=== PATIENT | male | born 1950 | race Caucasian/White ===

== ENCOUNTER → 2017-02-25 | Outpatient (CLI) | payer BC, OTHER ==
[~2017-02-25] MED LIST: ALL180 PO; ATOR10TA82 PO; CHLO50TA PO; EMPA1TAB3 PO; FLM4 PO; GABA-1218 PO; GLC5 PO; GLC850 PO; L-ME1CAP3 PO; MCRK/10 PO; MULT-188 PO; magnesium PO
--- NOTE | 2017-02-25 09:00 | DIAGNOSTIC IMAGING REPORT ---
KUB CLINICAL HISTORY: Nephrolithiasis. COMPARISON STUDY: KUB July 29, 2013. FINDINGS: 2 adjacent calculi within the lower pole of the left kidney measure up to 6 mm. Pelvic calcifications likely reflect phleboliths. There are post surgical findings within the spine. There is no evidence for a bowel obstruction. There is a suspected punctate calculus within the lower pole of the right kidney. Calculus burden has slightly increased since prior exam. IMPRESSION: Bilateral nephrolithiasis, as described above. Electronically signed by: Remi Rao M.D. 02/25/2017 8:58 AM Dictated Date/Time: 02/25/2017 8:55 AM
== END | disposition home or self-care (01) ==
LOC: C.RAD 08:33
PROVIDERS: ATTEND Urology
DX: N20.0 Calculus of kidney (principal)

== ENCOUNTER → 2018-02-11 | Outpatient (CLI) | payer OTHER ==
[~2018-02-11] MED LIST changes: -GLC850 PO; +METF850T10 PO
== END | disposition home or self-care (01) ==
LOC: C.LAB 13:54
PROVIDERS: ATTEND Urology
DX: N40.1 Benign prostatic hyperplasia with lower urinary tract symptoms (principal); N20.0 Calculus of kidney; Z12.5 Encounter for screening for malignant neoplasm of prostate

== ENCOUNTER → 2018-03-05 | Outpatient (CLI) | payer OTHER | END | disposition home or self-care (01) | LOC: C.LAB 09:01 | PROVIDERS: ATTEND Family Medicine | DX: N40.0 Benign prostatic hyperplasia without lower urinary tract symptoms (principal) ==

== ENCOUNTER 2020-03-31 10:55 | Inpatient (IN) ==
[2020-03-31] MEDS ORDERED: ONDANSETRON INJ 2 MG/ML 2 ML VIAL IV STA (11:34)
[2020-03-31] MEDS ORDERED: SODIUM CHLORIDE 0.9% 1000ML 1,000 ML IV ONE (11:34)
[2020-03-31 12:04] LABS: Basophils # (auto) 0.03 K/uL (0-0.2); Basophils % (auto) 0.3 %; Eosinophils # (auto) 0.05 K/uL (0-0.5); Eosinophils % (auto) 0.6 %; Hematocrit (blood only) 47.5 % (42-52); Hemoglobin 16.4 g/dL (14.0-18.0); Immature Granulocytes # (auto) 0.03 K/uL (0.00-0.02); Immature Granulocytes % (auto) 0.3 %; Lymphocytes # (auto) 1.87 K/uL (1.2-3.4); Lymphocytes % (auto) 21.7 %; Mean Corpuscular Hgb Conc 34.5 g/dL (32-36); Mean Corpuscular Volume 92.6 fL (80-100); Mean Platelet Volume 10.6 fL (7.4-10.4); Monocytes # (auto) 1.76 K/uL (0.11-0.59); Monocytes % (auto) 20.4 %; Neutrophils # (auto) 4.87 K/uL (1.4-6.5); Neutrophils % (auto) 56.7 %; Platelet Count 249 K/uL (130-400); RDW Coefficient of Variation 13.6 % (11.5-14.5); RDW Standard Deviation 45.9 fL (36.4-46.3); Red Blood Count 5.13 M/uL (4.7-6.1); White Blood Count 8.61 K/uL (4.8-10.8)
--- NOTE | 2020-03-31 12:07 | XRay Report ---
XR chest 1V portable CLINICAL HISTORY: Atypical chest pain COMPARISON STUDY: 09/29/2018 FINDINGS: The cardiac and mediastinal contours are normal. There is no evidence of focal pulmonary co nsolidation. There is no evidence of failure. No pleural effusions are visualized.[A rounded opacity at the left lung base is felt to represent a nipple shadow. IMPRESSION: No active disease in the chest. ACT 112: Negative or not required by law. Electronically signed by: Geraldo Carnes M.D. 03/31/2020 12:05 PM
[2020-03-31 12:11] LABS: Alanine Aminotransferase 26 U/L (12-78); Albumin Level 3.5 gm/dl (3.4-5.0); Aspartate Aminotransferase 23 U/L (15-37); BUN Creatinine Ratio 10.3 (10-20); Blood Urea Nitrogen 11 mg/dl (7-18); Calcium 9.7 mg/dl (8.5-10.1); Carbon Dioxide 29 mmol/L (21-32); Chloride 100 mmol/L (98-107); Creatinine Clr Calc Pharmacy 64.3 ml/min; Est GFR (African American) 80.7; Est GFR (Non-African American) 69.7; Glucose 159 mg/dl (70-99); Lipase 99 U/L (73-393); Potassium 3.5 mmol/L (3.5-5.1); Sodium 134 mmol/L (136-145)
[2020-03-31 12:16] LABS: Albumin Globulin Ratio 0.8 (0.9-2); Alkaline Phosphatase 98 U/L (45-117); Bilirubin,Total 0.9 mg/dl (0.2-1); Creatine Kinase 228 U/L (39-308); Creatine Kinase MB 4.1 ng/ml (0.5-3.6); Globulin 4.6 gm/dl (2.5-4.0); Total Protein 8.1 gm/dl (6.4-8.2); Troponin I < 0.015 ng/ml (0-0.045)
[2020-03-31] MEDS ORDERED: IOVERSOL 100ml IV PRN (12:22)
--- NOTE | 2020-03-31 12:45 | CT Scan Report ---
CT abd pelvis IV con only CLINICAL HISTORY: Right lower quadrant abdominal pain COMPARISON STUDY: None. TECHNIQUE: Patient was scanned in a dynamic helical fashion during intravenous administration of 94 c c of Optiray 320. A dose lowering technique was utilized adhering to the principles of ALARA. CT DOSE: 792.90 mGy.cm FINDINGS: Lower chest: There is a 5 mm solid left lower lobe pulmonary nodule abutting the diaphragmatic surfac e. A low-risk patient, no further follow-up is indicated. There is right lower lobe atelectasis/scarr ing. There is a small hiatal hernia Liver: There is hepatic steatosis. No focal hepatic masses are visualized. Gallbladder: Unremarkable. Spleen: Normal in size and attenuation. Pancreas: Unremarkable. Adrenal glands: Unremarkable. Kidneys: There are bilateral renal hypodensities consistent with cysts. There are nonobstructing lowe r pole left renal calculi. No ureteral calculi are visualized. No bladder calculi are evident. Bowel: There are no transition zones to indicate bowel obstruction. There is colonic diverticulosis. There are no acute peridiverticular inflammatory changes. There is borderline appendiceal enlargement , but there are no periappendiceal inflammatory changes. The appendix measures 7 mm in maximal diamet er.. There is borderline colonic wall thickening most pronounced involving the descending colon. A mi ld colitis cannot be excluded Peritoneum: There is no intraperitoneal free air or abdominal ascites. There is a tiny fat-containing umbilical hernia. Vasculature: The abdominal aorta is normal in course and caliber. Adenopathy: There are mildly prominent central mesenteric lymph nodes. There are also prominent right ileocolic lymph nodes measuring up to 1 cm diameter. Pelvic viscera: There is mild bladder wall thickening. The prostate is enlarged. Skeletal structures: Postsurgical changes are present within the lumbar spine IMPRESSION: 1. No evidence of bowel obstruction. No evidence of free air 2. Minimal appendiceal thickening (7 mm), but no evidence of periappendiceal inflammatory change. Thi s likely represents a normal variation. Correlation with patient's symptomatology is recommended. 3. Borderline colonic wall thickening most pronounced in the left colon. A mild colitis cannot be exc luded 4. No evidence of acute diverticulitis 5. Mildly prominent mesenteric and right ileocolic lymph nodes. 6. Prostatomegaly and mild bladder wall thickening 7. Hepatic steatosis ACT 112: Negative or not required by law. Electronically signed by: Geraldo Carnes M.D. 03/31/2020 12:43 PM
[2020-03-31] MEDS ORDERED: ACETAMINOPHEN 1,000 MG/100 ML VIAL IV STA (13:26)
--- NOTE | 2020-03-31 14:13 | Emergency Department Note ---
History of Present Illness General Chief complaint: Hypoglycemia Stated complaint: BLOOD SUGAR 87, DIARRHEA, NO APPETITE,HEADACHE Time Seen by Provider: 03/31/20 11:27 Source: patient, RN notes reviewed and old records reviewed Mode of arrival: ambulatory Limitations: no limitations History of Present Illness Provider complaint: Right Lower quadrant abd pain, diarrhea, no appetite Onset (ago): day(s) 3 Location: abdomen Radiation: non-radiation Severity: moderate Pain Consistency: + colicky Maximum Pain Intensity: 0 Current Pain Intensity: 3 Relieved By: + immobilization Exacerbated By: + movement Associated symptoms: + headaches, + loss of appetite and + nausea/vomiting; no chest pain, no diaphoresis and no fever/chills Treatments prior to arrival: none This is a 69-year-old male who presents emergency department complaining of right lower quadrant abdominal pain as well as diarrhea. The patient reports he ate [place] fried chicken 3 nights ago and since then has had loss of appetite along with nausea and diarrhea. Patient reportedly thought it was due to the grease in the food. He has not taken anything for the pain. The patient is a diabetic and is concerned that his blood sugar is too low. Home Medications Home Medications Medication Instructions Recorded Confirmed Type Ocuvite Adult 50 Plus 1 cap PO QAM 09/17/18 03/31/20 History atorvastatin [Lipitor] 10 mg PO HS 09/17/18 03/31/20 History chlorthalidone 25 mg PO QAM 09/17/18 03/31/20 History fexofenadine [Ingrid Allergy] 180 mg PO QAM 09/17/18 03/31/20 History gabapentin 300 mg PO QAM 09/17/18 03/31/20 History magnesium 250 mg PO BID 09/17/18 03/31/20 History potassium chloride 20 meq PO BID 09/17/18 03/31/20 History acetaminophen [Tylenol Arthritis 1,950 mg PO 04/18/19 03/31/20 History Pain] aspirin 81 mg PO QAM 04/18/19 03/31/20 History gabapentin 600 mg PO HS 04/18/19 03/31/20 History insulin NPH and regular human 47 unit SUBCUT QA 04/18/19 03/31/20 History [Novolin 70/30 U-100 Insulin] insulin NPH and regular human 62 unit SUBCUT 03/31/20 03/31/20 History [Novolin 70/30 U-100 Insulin] metformin 500 mg PO BID 03/31/20 03/31/20 History tamsulosin [Flomax] 0.4 mg PO HS 03/31/20 03/31/20 History Allergies Allergy/AdvReac Type Severity Reaction Status Date / Time ibuprofen [From Advil] Allergy Severe Blister Unverified 03/31/20 11:47 Past Med/Surg History Medical History Diabetes mellitus, type 2 iddm History of basal cell cancer Hyperlipidemia Kidney stones Osteoarthritis Surgical History History of back surgery lumbar spine History of basal cell carcinoma (BCC) excision History of carpal tunnel release bl History of colonoscopy w/ polypectomy History of lithotripsy History of tonsillectomy History of ureter stent Family History Brother Family history of diabetes mellitus Father Family history of diabetes mellitus Social History Preferred Language: [place] Citizen Communication Ability: Effective 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 Beliefs That Will Affect Care: None Current Living Situation: Alone Other Information That Helps Us Care for You: No Feels Safe at Home: Yes Safety Concerns: Feels Safe At This Time Smoking Status: Former smoker Do You Dip or Chew Tobacco: No ; Second Hand Exposure: No ; Tobacco Cessation Education Requested by Patient: No Hx Alcohol Use: Yes Alcohol type: beer Hx Substance Use: No Review of Systems A total of 10 systems reviewed and were otherwise negative Physical Exam Vital Signs Vital Signs - 24 hr 03/31/20 14:22 03/31/20 14:30 03/31/20 14:40 Pulse Rate 71 67 73 Pulse Rate from SpO2 Sensor 70 67 73 Respiratory Rate 18 11 L 16 Blood Pressure 131/70 Blood Pressure Mean 76 Pulse Oximetry 97 97 97 VITAL SIGNS - Vital signs and nursing notes were reviewed. GENERAL - 69-year-old male appearing stated age who is in no acute distress. Communicates well with provider and answers questions appropriately. SKIN - Without rashes. HEAD - NC/AT. EYES - PERRL with EOMI bilaterally. Sclera anicteric. Palpebral conjunctiva pink and moist with no injection noted. EARS - No deformities of external structures noted on gross examination bilaterally. No pain elicited with palpation of the tragus bilaterally. External auditory canals without discharge or otorrhea. Tympanic membranes pearly qiu without retraction or bulging. No fluid or purulent material visualized behind the TM. Handle of malleus, umbo, cone of light, pars tensa/flaccid all easily visualized. NOSE - Midline and without cyanosis. No epistaxis or purulent drainage noted. Septum midline without deviation or septal hematoma noted. MOUTH/OROPHARYNX - Without perioral cyanosis. Buccal mucosa pink and moist and without leukoplakia. Tongue midline with equal elevation of palate bilaterally. No tonsillar hypertrophy, erythema, or exudates noted. [] dentition noted. NECK - Neck with FROM. Supple to palpation. [] lymphadenopathy noted. No nuchal rigidity. LUNGS - Chest wall symmetric without accessory muscle use, intercostals retractions, or central cyanosis. Normal vesicular breath sounds CTA B/L. No wheezes, rales, or rhonchi appreciated. CARDIAC - RRR with S1/S2. No murmur, rubs, or gallops appreciated. ABDOMEN - Abdominal contour without pulsations or visible masses. BS normo active all four quadrants. + tenderness with rebound + guarding, palpable masses, hepatosplenomegaly, or ascites noted. EXTREMITIES - No clubbing or peripheral cyanosis. No pretibial edema present. + 3/5 radial, posterior tibial, and dorsalis pedis pulses palpated throughout. +5/5 strength noted in UE/LE bilaterally. NEUROLOGIC - Cranial nerves II through XII grossly intact. Sensory intact to light touch throughout. Patellar reflexes +2/4. PSYCH - A&Ox3 and cooperates fully with examiner. Pt is very pleasant and interacts well with examiner. Course Administered Medications Acetaminophen (Tylenol) 650 mg PO Q4H PRN PRN Reason: pain/fever Stop: 04/30/20 15:38 Last Admin: 04/01/20 03:11 Dose: 650 mg Documented by: [id number] Aspirin (Ecotrin Ectab) 81 mg PO [facility] Stop: 05/01/20 08:59 Last Admin: 04/01/20 08:34 Dose: 81 mg Documented by: [id number] Atorvastatin Calcium (Lipitor) 10 mg PO HS [facility] Stop: 04/30/20 20:59 Last Admin: 03/31/20 21:21 Dose: 10 mg Documented by: [id number] Cholestyramine Resin (Questran) 8 gm PO BID@1000,2200 [facility] Stop: 05/01/20 12:59 Last Admin: 04/01/20 13:10 Dose: 8 gm Documented by: [id number] Fexofenadine HCl (Ingrid) 180 mg PO [facility] Stop: 05/01/20 08:59 Last Admin: 04/01/20 08:35 Dose: 180 mg Documented by: [id number] Gabapentin (Neurontin) 300 mg PO [place] Stop: 05/01/20 08:59 Last Admin: 04/01/20 08:35 Dose: 300 mg Documented by: [id number] Gabapentin (Neurontin) 600 mg PO [facility] Stop: 04/30/20 20:59 Last Admin: 03/31/20 21:21 Dose: 600 mg Documented by: [id number] Ciprofloxacin (Cipro) 400 mg in 200 mls @ 100 mls/hr IV Q12H [facility]; Protocol Stop: 04/11/20 01:59 Last Infusion: 04/01/20 04:13 Dose: 0 mls/hr Documented by: [id number] Admin: 04/01/20 01:49 Dose: 100 mls/hr Documented by: [id number] Metronidazole (Flagyl) 500 mg in 100 mls @ 100 mls/hr IV Q8H [facility] Stop: 04/10/20 21:59 Last Admin: 04/01/20 13:10 Dose: 100 mls/hr Documented by: [id number] Infusion: 04/01/20 06:45 Dose: 0 mls/hr Documented by: [id number] Admin: 04/01/20 05:41 Dose: 100 mls/hr Documented by: [id number] Infusion: 03/31/20 22:30 Dose: 0 mls/hr Documented by: [id number] Admin: 03/31/20 21:21 Dose: 100 mls/hr Documented by: [id number] Potassium Chloride/Sodium Chloride (Normal Saline W/20 Meq Kcl) 20 meq in 1,000 mls @ 100 mls/hr IV .Q10H [facility] Stop: 04/30/20 17:29 Last Infusion: 04/01/20 06:44 Dose: 100 mls/hr Documented by: [id number] Infusion: 04/01/20 05:41 Dose: 0 mls/hr Documented by: [id number] Admin: 04/01/20 05:36 Dose: 100 mls/hr Documented by: [id number] Infusion: 04/01/20 05:36 Dose: 100 mls/hr Documented by: [id number] Infusion: 04/01/20 04:13 Dose: 100 mls/hr Documented by: [id number] Infusion: 04/01/20 01:59 Dose: 0 mls/hr Documented by: [id number] Admin: 03/31/20 18:00 Dose: 100 mls/hr Documented by: [id number] Insulin Aspart (Novolog Flexpen) 0 units SC ACHS [facility] Stop: 04/30/20 16:59 Last Admin: 04/01/20 12:35 Dose: 5 units Documented by: [id number] Cosigned by: [id number] Admin: 04/01/20 08:38 Dose: 3 units Documented by: [id number] Cosigned by: [id number] Admin: 03/31/20 21:23 Dose: 1 units Documented by: [id number] Cosigned by: [id number] Admin: 03/31/20 18:02 Dose: Not Given Documented by: [id number] Insulin Glargine (Lantus Solostar Pen) 10 units SC BID [facility] Stop: 04/30/20 20:59 Last Admin: 04/01/20 08:38 Dose: 10 units Documented by: [id number] Cosigned by: [id number] Admin: 03/31/20 21:22 Dose: 10 units Documented by: [id number] Cosigned by: [id number] Ioversol (Optiray 320 100ml) 94 ml IV ONCE PRN PRN Reason: Interaction Checking Stop: 04/04/20 12:21 Last Admin: 03/31/20 12:22 Dose: 94 ml Documented by: [id number] Loperamide HCl (Imodium) 2 mg PO Q4H PRN PRN Reason: Diarrhea Stop: 05/01/20 07:34 Last Admin: 04/01/20 07:51 Dose: 2 mg Documented by: [id number] Magnesium Oxide (Mag-Ox) 400 mg PO BID [facility] Stop: 04/30/20 20:59 Last Admin: 04/01/20 08:35 Dose: 400 mg Documented by: [id number] Admin: 03/31/20 21:20 Dose: 400 mg Documented by: [id number] Multivitamins/Minerals (Multivitamin W/ Minerals Tab) 1 tab PO QAM [facility] Stop: 05/01/20 08:59 Last Admin: 04/01/20 08:35 Dose: 1 tab Documented by: [id number] Ondansetron HCl (Zofran) 4 mg IV Q6H PRN PRN Reason: Nausea Stop: 04/30/20 14:55 Last Admin: 04/01/20 07:51 Dose: 4 mg Documented by: [id number] Potassium Chloride (Klor-Con M20) 20 meq PO BID [facility] Stop: 04/30/20 20:59 Last Admin: 04/01/20 08:35 Dose: 20 meq Documented by: [id number] Admin: 03/31/20 21:21 Dose: 20 meq Documented by: [id number] Tamsulosin HCl (Flomax) 0.4 mg PO HS [facility] Stop: 04/30/20 20:59 Last Admin: 03/31/20 21:20 Dose: 0.4 mg Documented by: [id number] Discontinued Medications Ciprofloxacin (Cipro) 500 mg PO NOW STA Stop: 03/31/20 14:42 Last Admin: 03/31/20 14:52 Dose: 500 mg Documented by: [id number] Sodium Chloride (Nss 1000ml) 1,000 mls @ 999 mls/hr IV .Q1H1M ONE Stop: 03/31/20 12:34 Last Infusion: 03/31/20 15:22 Dose: 0 mls/hr Documented by: [id number] Admin: 03/31/20 11:45 Dose: 999 mls/hr Documented by: [id number] Acetaminophen (Ofirmev) 1,000 mg in 100 mls @ 400 mls/hr IV NOW STA Stop: 03/31/20 13:40 Last Infusion: 03/31/20 15:25 Dose: 0 mls/hr Documented by: [id number] Admin: 03/31/20 13:31 Dose: 400 mls/hr Documented by: [id number] Sodium Chloride (Nss 1000ml) 1,000 mls @ 100 mls/hr IV .Q10H [facility] Stop: 04/30/20 15:14 Last Infusion: 03/31/20 18:08 Dose: 0 mls/hr Documented by: [id number] Infusion: 03/31/20 18:04 Dose: 0 mls/hr Documented by: [id number] Admin: 03/31/20 16:44 Dose: 100 mls/hr Documented by: [id number] Metronidazole (Flagyl) 500 mg PO NOW STA Stop: 03/31/20 14:42 Last Admin: 03/31/20 14:52 Dose: 500 mg Documented by: [id number] Ondansetron HCl (Zofran) 4 mg IV NOW STA Stop: 03/31/20 11:35 Last Admin: 03/31/20 12:00 Dose: 4 mg Documented by: [id number] Potassium Chloride (Klor-Con M20) 20 meq PO NOW STA Stop: 03/31/20 17:18 Last Admin: 03/31/20 18:00 Dose: 20 meq Documented by: [id number] Medical Decision Making Differential Diagnosis Appendicitis, testicular torsion, infections, diverticulitis, UTI, obstruction, mesenteric ischemia, aortic pathology, inflammatory bowel disease, renal colic, PUD, pancreatitis, biliary pathology, hernia, volvulus, constipation, as well as other pathologies. Medical Records Attestation: I reviewed the patient's medical records. Home Medications Current Medication List: was personally reviewed by me Laboratory Data Attestation: I reviewed the patient's lab results. Result diagrams: 03/31/20 11:21 04/01/20 04:38 Lab Results 03/31/20 03/31/20 03/31/20 Range/Units 11:12 11:21 11:21 WBC 8.61 (4.8-10.8) K/uL RBC 5.13 (4.7-6.1) M/uL Hgb 16.4 (14.0-18.0) g/dL Hct 47.5 (42-52) % MCV 92.6 (80-100) fL MCH 32.0 (25-34) pg MCHC 34.5 (32-36) g/dL RDW Std Deviation 45.9 (36.4-46.3) fL RDW Coeff of Dolores 13.6 (11.5-14.5) % Plt Count 249 (130-400) K/uL MPV 10.6 H (7.4-10.4) fL Immature Gran % (Auto) 0.3 % Neut % (Auto) 56.7 % Lymph % (Auto) 21.7 % [place] % (Auto) 20.4 % Eos % (Auto) 0.6 % Baso % (Auto) 0.3 % Immature Gran # (Auto) 0.03 H (0.00-0.02) K/uL Neut # (Auto) 4.87 (1.4-6.5) K/uL Lymph # (Auto) 1.87 (1.2-3.4) K/uL [place] # (Auto) 1.76 H (0.11-0.59) K/uL Eos # (Auto) 0.05 (0-0.5) K/uL Baso # (Auto) 0.03 (0-0.2) K/uL Sodium 134 L (136-145) mmol/L Potassium 3.5 (3.5-5.1) mmol/L Chloride 100 (98-107) mmol/L Carbon Dioxide 29 (21-32) mmol/L Anion Gap 5.0 (3-11) BUN 11 (7-18) mg/dl Creatinine 1.08 (0.6-1.4) mg/dl Est Cr Clr Drug Dosing 64.3 ml/min Est GFR ( Amer) 80.7 Est GFR (Non-Af Amer) 69.7 BUN/Creatinine Ratio 10.3 (10-20) Glucose 159 H (70-99) mg/dl POC Glucose 150 H (70-99) mg/dl Calcium 9.7 (8.5-10.1) mg/dl Total Bilirubin 0.9 (0.2-1) mg/dl AST 23 (15-37) U/L ALT 26 (12-78) U/L Alkaline Phosphatase 98 (45-117) U/L Total Creatine Kinase 228 (39-308) U/L CK-MB (CK-2) 4.1 H (0.5-3.6) ng/ml CK/CKMB % Calc 1.8 (0-3.0) Troponin I < 0.015 (0-0.045) ng/ml Total Protein 8.1 (6.4-8.2) gm/dl Albumin 3.5 (3.4-5.0) gm/dl Globulin 4.6 H (2.5-4.0) gm/dl Albumin/Globulin Ratio 0.8 L (0.9-2) Lipase 99 (73-393) U/L Imaging Data Radiologist's Impression: [facility], [place] [phone] CT Scan Report Patient: KASSY FLORES Date: 03/31/20 MR#: [id number]: [address] Acct ID:[id number]: Date: 1950City Zip: [place] [address] Age: 69Location: ED Sex: M Room/Bed: Att Phy:Diagnosis: BLOOD SUGAR 87, DIARRHEA, NO APPETITE,HEADACHE Nika Phy: Avila Hernandez MDService Date: 03/31/20 Fam Phy:Interpreting Phy: Geraldo Carnes MD Admit Phy: Ordering Phy: David Arevalo MD cc: ~ CT abd pelvis IV con only CLINICAL HISTORY: Right lower quadrant abdominal pain COMPARISON STUDY: None. TECHNIQUE: Patient was scanned in a dynamic helical fashion during intravenous administration of 94 cc of Optiray 320. A dose lowering technique was utilized adhering to the principles of ALARA. CT DOSE: 792.90 mGy.cm FINDINGS: Lower chest: There is a 5 mm solid left lower lobe pulmonary nodule abutting the diaphragmatic surface. A low-risk patient, no further follow-up is indicated. There is right lower lobe atelectasis/scarring. There is a small hiatal hernia Liver: There is hepatic steatosis. No focal hepatic masses are visualized. Gallbladder: Unremarkable. Spleen: Normal in size and attenuation. Pancreas: Unremarkable. Adrenal glands: Unremarkable. Kidneys: There are bilateral renal hypodensities consistent with cysts. There are nonobstructing lower pole left renal calculi. No ureteral calculi are visualized. No bladder calculi are evident. Bowel: There are no transition zones to indicate bowel obstruction. There is colonic diverticulosis. There are no acute peridiverticular inflammatory changes. There is borderline appendiceal enlargement, but there are no periappendiceal inflammatory changes. The appendix measures 7 mm in maximal diameter.. There is borderline colonic wall thickening most pronounced involving the descending colon. A mild colitis cannot be excluded Peritoneum: There is no intraperitoneal free air or abdominal ascites. There is a tiny fat-containing umbilical hernia. Vasculature: The abdominal aorta is normal in course and caliber. Adenopathy: There are mildly prominent central mesenteric lymph nodes. There are also prominent right ileocolic lymph nodes measuring up to 1 cm diameter. Pelvic viscera: There is mild bladder wall thickening. The prostate is enlarged. Skeletal structures: Postsurgical changes are present within the lumbar spine IMPRESSION: 1. No evidence of bowel obstruction. No evidence of free air 2. Minimal appendiceal thickening (7 mm), but no evidence of periappendiceal inflammatory change. This likely represents a normal variation. Correlation with patient's symptomatology is recommended. 3. Borderline colonic wall thickening most pronounced in the left colon. A mild colitis cannot be excluded 4. No evidence of acute diverticulitis 5. Mildly prominent mesenteric and right ileocolic lymph nodes. 6. Prostatomegaly and mild bladder wall thickening 7. Hepatic steatosis ACT 112: Negative or not required by law. [place], [place] [phone] XRay Report Patient: KASSY FLORES Date: 03/31/20 MR#: [id number]: [address] Acct ID:[id number]: Date: 1950[facility] Zip: [place] [address] Age: 69Location: ED Sex: M Room/Bed: Att Phy:Diagnosis: BLOOD SUGAR 87, DIARRHEA, NO APPETITE,HEADACHE Nika Phy: Avila Hernandez MDService Date: 03/31/20 Fam Phy:Interpreting Phy: Geraldo Carnes MD Admit Phy: Ordering Phy: David Arevalo MD cc: ~ XR chest 1V portable CLINICAL HISTORY: Atypical chest pain COMPARISON STUDY: 09/29/2018 FINDINGS: The cardiac and mediastinal contours are normal. There is no evidence of focal pulmonary consolidation. There is no evidence of failure. No pleural effusions are visualized.[A rounded opacity at the left lung base is felt to represent a nipple shadow. IMPRESSION: No active disease in the chest. ACT 112: Negative or not required by law. Electronically signed by: Geraldo Carnes M.D. 03/31/2020 12:05 PM Dictated: 03/31/201204 Transcribed: 03/31/201204 ECG Data Attestation: I personally reviewed and interpreted this ECG as follows: Indication: + abdominal pain Rate (beats per minute): 71 Rhythm: + normal sinus ECG [place]: + Normal ECG ST segments: no ST depression and no ST elevation Comparison ECG Date: from (03/11/2019) Change: no significant change Blood Pressure Blood Pressure Findings: Elevated blood pressure Blood Pressure Disposition: elevated BP felt to be situational MDM Narrative Patient was seen and evaluated as above in room C6. Review was performed of nursing notes and vital signs. I did review pertinent previous visits and patient history. After obtaining a thorough history and physical examination the above work up was performed. This is a 69-year-old male who presents emergency department complaining of abdominal pain. The patient does not have an elevation in his white blood cell count. Based on shared medical decision making the decision was made to send the patient for a CAT scan of the abdomen pelvis. Results are as above. I did discuss these findings with surgery who was kind enough to come down and see the patient. They did asked that the patient be placed on an antibiotic for his colitis and to be discussed with the hospitalist service. An order was placed for continuous cardiac monitoring. The monitor shows a rate of 72 with Normal Sinus rhythm. The patient was evaluated during the global COVID-19 pandemic, and that diagnosis was suspected/considered upon their initial presentation. Their evaluation, treatment and testing was consistent with current guidelines for patients who present with complaints or symptoms that may be related to COVID- 19. Impression & Plan Colitis, Abdominal pain Discharge Plan Visit Data *Final* Discharge Date/Time: 03/31/20 17:08 Chief Complaint: Hypoglycemia Stated Complaint: BLOOD SUGAR 87, DIARRHEA, NO APPETITE,HEADACHE ED Provider: David Arevalo Discharge Problem: Colitis, Abdominal pain Patient Disposition: Admitted As Inpatient Discharge Instructions Interventions: ED Discharge Assessment Last Done: 03/31/20 17:08 Discharge Problem: Abdominal pain Qualifiers: Abdominal location: unspecified location Qualified Code(s): R10.9 - Unspecified abdominal pain
[2020-03-31] MEDS ORDERED: metroNIDAZOLE 500 MG TAB PO STA (14:41)
[2020-03-31] MEDS ORDERED: CIPROFLOXACIN 500 MG TAB PO STA (14:41)
--- NOTE | 2020-03-31 14:48 | Surgery Consultation ---
Date of Consultation March 31, 2020 Assessment & Plan (1) Colitis: Appendix at upper limit normal, no inflammatory changes. WBC normal, exam benign. Can be evaluated by medical service for possible admission for colitis, diabetes management. History of Present Illness History of Present Illness 69 y/o diabetic male with abdominal discomfort, nausea and diarrhea for the past 4 days. No fevers or chills. Hasn't been able to eat much, had some vomiting last night. Has had 3 watery BMs today, less than the past few days. Has been on abx in the past for foot ulcers but not for at least several months. Had colonoscopy approx 3 years ago. Allergies Allergy/AdvReac Type Severity Reaction Status Date / Time ibuprofen [From Advil] Allergy Severe Blister Unverified 03/31/20 11:47 Home Medications Home Medications Medication Instructions Recorded Confirmed Type Ocuvite Adult 50 Plus 1 cap PO QAM 09/17/18 03/31/20 History atorvastatin [Lipitor] 10 mg PO HS 09/17/18 03/31/20 History chlorthalidone 25 mg PO QAM 09/17/18 03/31/20 History fexofenadine [Ingrid Allergy] 180 mg PO QAM 09/17/18 03/31/20 History gabapentin 300 mg PO QAM 09/17/18 03/31/20 History magnesium 250 mg PO BID 09/17/18 03/31/20 History potassium chloride 20 meq PO BID 09/17/18 03/31/20 History acetaminophen [Tylenol Arthritis 1,950 mg PO HS 04/18/19 03/31/20 History Pain] aspirin 81 mg PO QAM 04/18/19 03/31/20 History gabapentin 600 mg PO HS 04/18/19 03/31/20 History insulin NPH and regular human 47 unit SUBCUT [facility] 04/18/19 03/31/20 History [Novolin 70/30 U-100 Insulin] insulin NPH and regular human 62 unit SUBCUT 03/31/20 03/31/20 History [Novolin 70/30 U-100 Insulin] metformin 500 mg PO BID 03/31/20 03/31/20 History tamsulosin [Flomax] 0.4 mg PO HS 03/31/20 03/31/20 History Patient History Medical History Diabetes mellitus, type 2 iddm History of basal cell cancer Hyperlipidemia Kidney stones Osteoarthritis Surgical History History of back surgery lumbar spine History of basal cell carcinoma (BCC) excision History of carpal tunnel release bl History of colonoscopy w/ polypectomy History of lithotripsy History of tonsillectomy History of ureter stent Family History Brother Family history of diabetes mellitus Father Family history of diabetes mellitus Social History Preferred Language: Luxembourgish Communication Ability: 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 Beliefs That Will Affect Care: None Current Living Situation: Alone Other Information That Helps Us Care for You: No Feels Safe at Home: Yes Safety Concerns: Feels Safe At This Time Smoking Status: Former smoker Do You Dip or Chew Tobacco: No ; Second Hand Exposure: No ; Tobacco Cessation Education Requested by Patient: No Hx Alcohol Use: Yes Alcohol type: beer Hx Substance Use: No Review of Systems Constitutional: no fever and no chills Gastrointestinal: + abdominal pain, + nausea and + diarrhea/loose stools Physical Exam Constitutional: WD/WN, vitals as above Respiratory: normal respiratory effort Cardiovascular: Rate/Rhythm: regular rate Gastrointestinal (Abdomen): Inspection/Auscultation: abdomen not distended Percussion/Palpation: + abdomen tender (minimal RLQ) and abdomen soft; no guarding Results & Data Vital Signs (Past 12 Hours) Vital Signs Temp Pulse Pulse Resp BP BP Pulse Ox 03/31/20 12:50 72 23 97 03/31/20 12:40 74 21 98 03/31/20 12:36 74 17 137/83 97 03/31/20 12:20 72 15 95 03/31/20 12:10 71 14 96 03/31/20 12:07 96 03/31/20 12:00 69 70 20 134/81 134/81 96 03/31/20 11:30 75 23 136/89 03/31/20 11:19 72 26 H 149/98 H 03/31/20 11:15 75 75 16 136/89 03/31/20 10:59 36.8 C 82 16 138/80 98 PG Care Time/CCT Total # of Minutes Spent Total Time Spent with Patient: Total time spent is greater than 50% in coordi nation of care (as documented) at patient's floor/unit and/or counseling patient: Coding Level of Care Code 85813 OBS Care - Level 2 Diagnoses Colitis K52.9
--- NOTE | 2020-03-31 14:55 | History & Physical Report ---
Date of Service March 31, 2020 Assessment & Plan (1) Colitis: Abdominal pain/diarrhea/vomiting: -Gastroenteritis, most possibly viral etiology, need to rule out C. difficile/and other infectious pathology: Stool C. difficile and culture ordered in ER already Patient denies of any recent antibiotic use CT abdomen pelvis as above: No evidence of sepsis, normal white count, normal LFTs, last loose bowel movement was approximately more than 8 hours back Will be monitored in medical floor, ordered for IV fluids, clear liquid diet will be advanced as tolerated Surgery evaluation appreciated, no evidence of acute appendicitis given CT finding We will start empirically with IV Cipro, Flagyl,-till stool studies are back Type 2 diabetes: Insulin-dependent We will hold patient's home dose of NPH, and metformin Insulin sliding scale, basal Lantus Hyperlipidemia: Continue statin Hypertension: Blood pressure stable, Hold diuretics, chlorthalidone given ongoing GI loss, concern for dehydration Hyponatremia: Due to dehydration, GI loss, patient is also on diuretics chlorthalidone for hypertension Chlorthalidone kept on hold IV fluids with normal saline Repeat BMP in a.m. CODE STATUS: Full code DVT prophylaxis: Low risk patient is active at baseline SCD and teds patient is encouraged to ambulate Disposition: Expected to be discharged home in next 1 to 2 days once GI symptoms resolve Family physician follow-up with Dr. Vuong at [facility] Patient meets criteria for admission for 2 midnight rule Will be followed by Dr. Jimi Frey on the floor from tomorrow 04/01/2020 History of Present Illness Chief Complaint: ABDOMINAL PAIN , DIARRHEA Primary Care Provider: Avila Hernandez MD This is a 69-year-old male with past medical history significant for type 2 diabetes insulin-dependent, hyperlipidemia, hypertension Came to ER with complaint of right lower quadrant abdominal pain, ongoing diarrhea, nausea vomiting for past 3 days Patient reports he ate [place] fried chicken from the drive-through last Thursday evening. 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 Last night, had an episode of vomiting, after small meal Patient try to keep up with drinking fluids, had not had any appetite Feels weak, tired, dizzy, no old syncope, no chest pain or shortness of breath In the ER, patient's labs and vitals were unremarkable CT abdomen pelvis shows evidence of colitis on left lower quadrant, no conclusive evidence of acute appendicitis Allergies Allergy/AdvReac Type Severity Reaction Status Date / Time ibuprofen [From Advil] Allergy Severe Blister Unverified 03/31/20 11:47 Home Medications Home Medications Medication Instructions Recorded Confirmed Type Ocuvite Adult 50 Plus 1 cap PO QAM 09/17/18 03/31/20 History atorvastatin [Lipitor] 10 mg PO HS 09/17/18 03/31/20 History chlorthalidone 25 mg PO QAM 09/17/18 03/31/20 History fexofenadine [Ingrid Allergy] 180 mg PO QAM 09/17/18 03/31/20 History gabapentin 300 mg PO QAM 09/17/18 03/31/20 History magnesium 250 mg PO BID 09/17/18 03/31/20 History potassium chloride 20 meq PO BID 09/17/18 03/31/20 History acetaminophen [Tylenol Arthritis 1,950 mg PO HS 04/18/19 03/31/20 History Pain] aspirin 81 mg PO QAM 04/18/19 03/31/20 History gabapentin 600 mg PO HS 04/18/19 03/31/20 History insulin NPH and regular human 47 unit SUBCUT QA 04/18/19 03/31/20 History [Novolin 70/30 U-100 Insulin] insulin NPH and regular human 62 unit SUBCUT 03/31/20 03/31/20 History [Novolin 70/30 U-100 Insulin] metformin 500 mg PO BID 03/31/20 03/31/20 History tamsulosin [Flomax] 0.4 mg PO HS 03/31/20 03/31/20 History Past Med/Surg History Medical History Diabetes mellitus, type 2 iddm History of basal cell cancer Hyperlipidemia Kidney stones Osteoarthritis Surgical History History of back surgery lumbar spine History of basal cell carcinoma (BCC) excision History of carpal tunnel release bl History of colonoscopy w/ polypectomy History of lithotripsy History of tonsillectomy History of ureter stent Family History Brother Family history of diabetes mellitus Father Family history of diabetes mellitus Social History Preferred Language: Sinhala 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 Beliefs That Will Affect Care: None Current Living Situation: Alone Other Information That Helps Us Care for You: No Feels Safe at Home: Yes Safety Concerns: Feels Safe At This Time Smoking Status: Former smoker Do You Dip or Chew Tobacco: No ; Second Hand Exposure: No ; Tobacco Cessation Education Requested by Patient: No Hx Alcohol Use: Yes Alcohol type: beer Hx Substance Use: No Review of Systems Review of Systems: All systems reviewed & are unremarkable except as noted in HPI & below Constitutional: as per Subjective / HPI, + weakness and + anorexia; no fever, no chills, no body aches, no fatigue and no weight loss Respiratory: no cough, no dyspnea, no dyspnea on exertion, no sputum production and no wheezing Cardiovascular: + lightheadedness; no chest pain, no chest pain with activity, no dyspnea, no palpitations and no syncope Gastrointestinal: as per Subjective / HPI, + abdominal pain, + nausea, + vomiting and + diarrhea/loose stools Neurologic: + generalized weakness and + dizziness; no syncope, no headache(s) and no confusion Physical Exam Constitutional: WD/WN, vitals as above no acute distress Eyes: PERRL, conjunctivae normal, anicteric sclerae ENMT: external ear and nose normal, oropharynx normal Neck: trachea midline, no thyromegaly Respiratory: normal respiratory effort, lungs clear to auscultation Cardiovascular: RRR, no murmur, no edema Gastrointestinal (Abdomen): Inspection/Auscultation: normal bowel sounds Percussion/Palpation: + abdomen tender (Mild tenderness on left lower quadrant on deep palpation) and abdomen soft Musculoskeletal: no cyanosis or clubbing, extremities motor strength 5/5 Skin: no rashes, warm and dry Neurologic: PERRL, EOMI, accommodation nl, no face palsy, no dysarthria Psychiatric: A+Ox3, euthymic affect Results & Data Results & Data ([facility]) Vital Signs (Past 12 Hours) Vital Signs Temp Pulse Pulse Resp BP BP Pulse Ox 03/31/20 14:40 73 16 97 03/31/20 14:30 67 11 L 131/70 97 03/31/20 14:22 71 18 97 03/31/20 14:10 68 12 96 03/31/20 14:00 65 17 126/75 96 03/31/20 13:30 69 15 133/73 97 03/31/20 13:00 72 13 136/75 98 03/31/20 12:50 72 23 97 03/31/20 12:40 74 21 98 03/31/20 12:36 74 17 137/83 97 03/31/20 12:20 72 15 95 03/31/20 12:10 71 14 96 03/31/20 12:07 96 03/31/20 12:00 69 70 20 134/81 134/81 96 03/31/20 11:30 75 23 136/89 03/31/20 11:19 72 26 H 149/98 H 03/31/20 11:15 75 75 16 136/89 03/31/20 10:59 36.8 C 82 16 138/[address] ABDOMEN /PELVIS WITH IV CONTRAST ONLY : IMPRESSION: 1. No evidence of bowel obstruction. No evidence of free air 2. Minimal appendiceal thickening (7 mm), but no evidence of periappendiceal inflammatory change. This likely represents a normal variation. Correlation with patient's symptomatology is recommended. 3. Borderline colonic wall thickening most pronounced in the left colon. A mild colitis cannot be excluded 4. No evidence of acute diverticulitis 5. Mildly prominent mesenteric and right ileocolic lymph nodes. 6. Prostatomegaly and mild bladder wall thickening 7. Hepatic steatosis Code Status & VTE Plan Code Status Full code VTE Prophylaxis Plan VTE Prophylaxis will be ordered: Yes
[2020-03-31] MEDS ORDERED: ONDANSETRON INJ 2 MG/ML 2 ML VIAL IV PRN (14:56)
[2020-03-31] MEDS ORDERED: MAGNESIUM HYDROXIDE SUSP 30 ML UDC PO PRN (14:56)
[2020-03-31] MEDS ORDERED: SODIUM CHLORIDE 0.9% 1000ML 1,000 ML IV SCH (15:15)
[2020-03-31] MEDS ORDERED: ALUMINUM/MAGNESIUM SUSP 30 ML UDC PO PRN (15:40)
[2020-03-31] MEDS ORDERED: GLUCAGON FOR INJ 1 MG VIAL SQ PRN (16:36)
[2020-03-31] MEDS ORDERED: GLUCOSE 40% GEL 15 GM TUBE PO PRN (16:36)
[2020-03-31] MEDS ORDERED: GLUCOSE 10 TABS/TUBE PO PRN (16:36)
[2020-03-31] MEDS ORDERED: CARBOHYDRATES FOR HYPOGLYCEMIA PO PRN (16:36)
[2020-03-31] MEDS ORDERED: DEXTROSE 50% 50 ML SYRINGE IV PRN (16:36)
[2020-03-31 16:53] LABS: BUN Creatinine Ratio 10.2 (10-20); Calcium 8.8 mg/dl (8.5-10.1); Creatinine Clr Calc Pharmacy 71.6 ml/min; Est GFR (African American) 91.9; Est GFR (Non-African American) 79.3
[2020-03-31] MEDS ORDERED: POTASSIUM CHLORIDE 20 MEQ TABCR PO STA (17:17)
[2020-03-31] MEDS ORDERED: POTASSIUM CHLORIDE 20 MEQ in SODIUM CHLORIDE 0.9% 1000ML 1,000 ML IV SCH (17:30)
[2020-03-31] MEDS: NSS + 20MEQ KCL 20 MEQ/1,000 ML BAG IV SCH (18:00)
[2020-03-31] MEDS: INSULIN ASPART 100 UNITS/ML 3 ML PEN SC SCH ×2 (18:02→21:23)
[2020-03-31] MEDS: TAMSULOSIN HCL 0.4 MG CAP PO SCH (21:20)
[2020-03-31] MEDS: MAGNESIUM OXIDE 400 MG TAB PO SCH (21:20)
[2020-03-31] MEDS: POTASSIUM CHLORIDE 20 MEQ TABCR PO SCH (21:21)
[2020-03-31] MEDS: ATORVASTATIN 10 MG TAB PO SCH (21:21)
[2020-03-31] MEDS: metroNIDAZOLE 500 MG/100 ML BAG IV SCH (21:21)
[2020-03-31] MEDS: GABAPENTIN 300 MG CAP PO SCH (21:21)
[2020-03-31] MEDS: INSULIN GLARGINE SOLOSTAR 100 UNITS/ML 3 ML PEN SC SCH (21:22)
[2020-04-01] MEDS: CIPROFLOXACIN / D5W 400 MG/200 ML BAG IV SCH ×2 (01:49→14:23)
[2020-04-01] MEDS: ACETAMINOPHEN 325 MG TAB PO PRN ×2 (03:11→22:05)
[2020-04-01 05:33] LABS: BUN Creatinine Ratio 6.9 (10-20); Calcium 8.5 mg/dl (8.5-10.1); Creatinine Clr Calc Pharmacy 76.3 ml/min; Est GFR (African American) 99.3; Est GFR (Non-African American) 85.7; Potassium 3.5 mmol/L (3.5-5.1)
[2020-04-01] MEDS: NSS + 20MEQ KCL 20 MEQ/1,000 ML BAG IV SCH ×2 (05:36→17:50)
[2020-04-01] MEDS: metroNIDAZOLE 500 MG/100 ML BAG IV SCH ×3 (05:41→21:51)
[2020-04-01] MEDS ORDERED: LOPERAMIDE HCL 2 MG CAP PO PRN (07:35)
--- NOTE | 2020-04-01 07:39 | Electrocardiogram Report ---
Test Reason : Blood Pressure : / mmHG Vent. Rate : 071 BPM Atrial Rate : 071 BPM P-R Int : 122 ms QRS Dur : 078 ms QT Int : 370 ms P-R-T Axes : 062 -06 034 degrees QTc Int : 402 ms Normal sinus rhythm Nonspecific T wave abnormality Abnormal ECG When compared with ECG of 11-MAR-2019 12:15, No significant change was found Confirmed by Adria Heard ([id number]) on 04/01/2020 7:38:38 AM Referred By: REFERRED SELF Confirmed By:Adria Heard
--- NOTE | 2020-04-01 07:41 | Hospitalist Progress Note ---
Date of Service April 01, 2020 Assessment & Plan (1) Colitis: Abdominal pain/diarrhea/vomiting: -Gastroenteritis, most possibly viral etiology, C. difficile is negative, stool cx pending Patient denies of any recent antibiotic use CT abdomen pelvis reviewed: No evidence of sepsis, normal white count, normal LFTs, 2 loose bowel movements last night and bed was changed twice IV fluids, clear liquid diet will be advanced as tolerated Surgery saw him, no evidence of acute appendicitis given CT finding Continue IV Cipro, Flagyl,-untilll stool studies are back Type 2 diabetes: Insulin-dependent We will hold patient's home dose of NPH, and metformin Insulin sliding scale, basal Lantus Hyperlipidemia: Continue statin Hypertension: Blood pressure stable, Hold diuretics, chlorthalidone given ongoing GI loss, concern for dehydration Hyponatremia: Due to dehydration, GI loss, patient is also on diuretics chlorthalidone for hypertension Chlorthalidone kept on hold IV fluids with normal saline Repeat BMP in a.m. CODE STATUS: Full code DVT prophylaxis: Low risk patient is active at baseline SCD and teds patient is encouraged to ambulate Disposition: Expected to be discharged home in next 1 to 2 days once GI symptoms resolve Family physician follow-up with Dr. Vuong at [facility] ROS-No Headache, No Visual Changes, No Nausea, No Vomiting, No Fever, No Chills, No Neck Pain or Stiffness, No Chest Pain, No Palpitations, No SOB, No BENNETT, No Cough, No Sputum, No Wheezing, + Abdominal Pain, + Diarrhea, No Hematemesis, No Hemoptysis, No Unexpected Weight Loss, No Flank pain, No Melena, No Hematochezia, No Frequency, No Urgency, No Burning, No Hematuria, No Rashes, No Diaphoresis. Appetite is Normal Labs checked Physical Exam Gen-AAO x 3, NAD, Afebrile Head-NCAT, EOMI, PERRLA, Anicteric Sclera, No Posterior Pharyngeal Erythema Neck-Supple, No JVD, No Thyromegaly, No Masses, No LAD, No Bruits Lungs-Clear to Auscultation Bilaterally, No Rales, No Rhonchi, No Wheezing, No Crepitus Chest-No S4, +S1, +S2, No S3, No Murmurs, No Rubs, No Gallops, No Ectopy Abdomen-Soft, Bowel Sounds Present, Diffusely Tender, Non Distended, No Hepatomegaly, No Splenomegaly, No Palpable Masses, No Rebound, No Rigidity, No Guarding Musculoskeletal-Full Range of Motion Bilaterally, No CVAT Extremities-No Cyanosis, No Clubbing, No Edema Nuero-Cranial Nerves II-XII grossly intact, Motor WNL, DTRs WNL, Strength WNL, Non Focal Psych-Normal Mood Admission and Anticipated Discharge Date Admission Date: March 31, 2020 Results & Data Results & Data ([facility]) Vital Signs (Past 12 Hours) Vital Signs Temp Pulse Resp BP Pulse Ox 04/01/20 07:18 36.5 C 62 18 111/67 100 03/31/20 23:02 36.7 C 63 18 138/72 96
[2020-04-01] MEDS: ASPIRIN 81 MG ECTAB PO SCH (08:34)
[2020-04-01] MEDS: MAGNESIUM OXIDE 400 MG TAB PO SCH ×2 (08:35→21:56)
[2020-04-01] MEDS: POTASSIUM CHLORIDE 20 MEQ TABCR PO SCH ×2 (08:35→21:55)
[2020-04-01] MEDS: GABAPENTIN 300 MG CAP PO SCH ×2 (08:35→21:55)
[2020-04-01] MEDS: FEXOFENADINE HCL 180 MG TAB PO SCH (08:35)
[2020-04-01] MEDS: CEROVITE ADV FORMULA TAB PO SCH (08:35)
[2020-04-01] MEDS: INSULIN GLARGINE SOLOSTAR 100 UNITS/ML 3 ML PEN SC SCH ×2 (08:38→21:57)
[2020-04-01] MEDS: INSULIN ASPART 100 UNITS/ML 3 ML PEN SC SCH ×4 (08:38→21:59)
--- NOTE | 2020-04-01 10:39 | Surgery Progress Note ---
Date of Service April 01, 2020 Assessment & Plan (1) Colitis: doubt appendicitis stool cx's pending agree with antibiotics will add questran avoid dairy products. Subjective pt seen. primary c/o is diarrhea which he continues to have. wants to go home. has some mild RLQ ttp. Physical Exam Physical Exam: alert. nad abd: soft. mild RLQ ttp and mild suprapubic ttp Results & Data Vital Signs (Past 12 Hours) Vital Signs Temp Pulse Resp BP Pulse Ox 04/01/20 07:18 36.5 C 62 18 111/67 100 03/31/20 23:02 36.7 C 63 18 138/72 96 PG Care Time/CCT Total # of Minutes Spent Total Time Spent with Patient: Total time spent is greater than 50% in coordination of care (as documented) at patient's floor/unit and/or counseling patient: Coding Level of Care Code 59484 Subseq Hosp Care Lvl 2 Diagnoses Colitis K52.9
[2020-04-01] MEDS: CHOLESTYRAMINE LIGHT 4 GM PKT PO SCH ×2 (13:10→21:51)
[2020-04-01] MEDS: TAMSULOSIN HCL 0.4 MG CAP PO SCH (21:55)
[2020-04-01] MEDS: ATORVASTATIN 10 MG TAB PO SCH (21:56)
[2020-04-01] MEDS ORDERED: CHOLESTYRAMINE LIGHT 4 GM PKT PO SCH (22:00)
[2020-04-02] MEDS: CIPROFLOXACIN / D5W 400 MG/200 ML BAG IV SCH (02:42)
[2020-04-02] MEDS: NSS + 20MEQ KCL 20 MEQ/1,000 ML BAG IV SCH (02:42)
[2020-04-02] MEDS: metroNIDAZOLE 500 MG/100 ML BAG IV SCH (04:58)
[2020-04-02 05:05] LABS: Basophils # (auto) 0.04 K/uL (0-0.2); Basophils % (auto) 0.6 %; Eosinophils # (auto) 0.26 K/uL (0-0.5); Eosinophils % (auto) 4.1 %; Hematocrit (blood only) 42.6 % (42-52); Hemoglobin 14.5 g/dL (14.0-18.0); Immature Granulocytes # (auto) 0.04 K/uL (0.00-0.02); Immature Granulocytes % (auto) 0.6 %; Lymphocytes # (auto) 2.19 K/uL (1.2-3.4); Lymphocytes % (auto) 34.9 %; Mean Corpuscular Hemoglobin 31.7 pg (25-34); Mean Platelet Volume 10.3 fL (7.4-10.4); Monocytes # (auto) 0.77 K/uL (0.11-0.59); Monocytes % (auto) 12.3 %; Neutrophils # (auto) 2.97 K/uL (1.4-6.5); Neutrophils % (auto) 47.5 %; Platelet Count 213 K/uL (130-400); RDW Coefficient of Variation 13.6 % (11.5-14.5); RDW Standard Deviation 46.1 fL (36.4-46.3); Red Blood Count 4.58 M/uL (4.7-6.1); White Blood Count 6.27 K/uL (4.8-10.8)
[2020-04-02 05:35] LABS: Calcium 8.2 mg/dl (8.5-10.1); Creatinine Clr Calc Pharmacy 86.8 ml/min; Est GFR (African American) 105.6; Est GFR (Non-African American) 91.1
[2020-04-02 05:51] LABS: Albumin Globulin Ratio 0.8 (0.9-2); Bilirubin,Total 0.5 mg/dl (0.2-1); Globulin 3.6 gm/dl (2.5-4.0); Total Protein 6.6 gm/dl (6.4-8.2)
[2020-04-02 07:12] LABS: Estimated Average Glucose 206 mg/dl; Hemoglobin A1C 8.8 % (4.5-5.6)
--- NOTE | 2020-04-02 08:40 | Discharge Summary ---
Date of Service April 02, 2020 Admission HPI Per Admitting Provider This is a 69-year-old male with past medical history significant for type 2 diabetes insulin-dependent, hyperlipidemia, hypertension Came to ER with complaint of right lower quadrant abdominal pain, ongoing diarrhea, nausea vomiting for past 3 days Patient reports he ate [place] fried chicken from the drive-through last Thursday evening. 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 Last night, had an episode of vomiting, after small meal Patient try to keep up with drinking fluids, had not had any appetite Feels weak, tired, dizzy, no old syncope, no chest pain or shortness of breath In the ER, patient's labs and vitals were unremarkable CT abdomen pelvis shows evidence of colitis on left lower quadrant, no conclusive evidence of acute appendicitis Admission Exam Per Admitting Provider Constitutional: WD/WN, vitals as above no acute distress Eyes: PERRL, conjunctivae normal, anicteric sclerae ENMT: external ear and nose normal, oropharynx normal Neck: trachea midline, no thyromegaly Respiratory: normal respiratory effort, lungs clear to auscultation Cardiovascular: RRR, no murmur, no edema Gastrointestinal (Abdomen): Inspection/Auscultation: normal bowel sounds Percussion/Palpation: + abdomen tender (Mild tenderness on left lower quadrant on deep palpation) and abdomen soft Musculoskeletal: no cyanosis or clubbing, extremities motor strength 5/5 Skin: no rashes, warm and dry Neurologic: PERRL, EOMI, accommodation nl, no face palsy, no dysarthria Psychiatric: A+Ox3, euthymic affect Principal Diagnosis Infectious Diarrhea Colitis: Type 2 diabetes: Hyperlipidemia: Hypertension: Hyponatremia: Discharge Exam ROS-No Headache, No Visual Changes, No Nausea, No Vomiting, No Fever, No Chills, No Neck Pain or Stiffness, No Chest Pain, No Palpitations, No SOB, No BENNETT, No Cough, No Sputum, No Wheezing, No Abdominal Pain, No Diarrhea, No Hematemesis, No Hemoptysis, No Unexpected Weight Loss, No Flank pain, No Melena, No H ematochezia, No Frequency, No Urgency, No Burning, No Hematuria, No Rashes, No Diaphoresis. Appetite is Normal Physical Exam Gen-AAO x 3, NAD, Afebrile Head-NCAT, EOMI, PERRLA, Anicteric Sclera, No Posterior Pharyngeal Erythema Neck-Supple, No JVD, No Thyromegaly, No Masses, No LAD, No Bruits Lungs-Clear to Auscultation Bilaterally, No Rales, No Rhonchi, No Wheezing, No Crepitus Chest-No S4, +S1, +S2, No S3, No Murmurs, No Rubs, No Gallops, No Ectopy Abdomen-Soft, Bowel Sounds Present, Non Tender, Non Distended, No Hepatomegaly, No Splenomegaly, No Palpable Masses, No Rebound, No Rigidity, No Guarding Musculoskeletal-Full Range of Motion Bilaterally, No CVAT Extremities-No Cyanosis, No Clubbing, No Edema Nuero-Cranial Nerves II-XII grossly intact, Motor WNL, DTRs WNL, Strength WNL, Non Focal Psych-Normal Mood Discharge Data Allergies Allergy/AdvReac Type Severity Reaction Status Date / Time ibuprofen [From Advil] Allergy Severe Blister Unverified 03/31/20 11:47 Consultations 03/31/20 12:58 Consult General Surgery Stat 03/31/20 14:51 ED Decision to Admit Stat Ordered Studies 03/31/20 11:33 CT abd pelvis IV con only Stat Current Diagnoses Noninfective gastroenteritis and colitis, unspecified (03/31/20) Allergies ibuprofen [From Advil] Allergy (Severe, Unverified 03/31/20 11:47) Blister Height/Weight/Isolation Height 5 ft 4 in Weight 87.3 kg Chemistry 03/31/20 03/31/20 04/01/20 11:21 16:01 04:38 Sodium 134 L 139 140 Potassium 3.5 3.0 L 3.5 D Chloride 100 105 107 Carbon Dioxide 29 27 28 Anion Gap 5.0 7.0 5.0 BUN 11 10 6 L Creatinine 1.08 0.97 0.91 Glucose 159 H 109 H 168 H 04/02/20 04:50 Sodium 141 Potassium 4.0 Chloride 109 H Carbon Dioxide 28 Anion Gap 4.0 BUN 3 L Creatinine 0.80 Glucose 177 H Microbiology 03/31/20 17:55 Stool Escherichia coli Shiga Toxins Test - Preliminary 03/31/20 17:55 Stool Stool Culture - Preliminary No Salmonella isolated to date, No Shigella isolated to date, No Campylobacter jejuni isolated to date. Hospital Course (1) Colitis: Abdominal pain/diarrhea/vomiting: -Gastroenteritis/Colitis/Infectious Diaarhea, C. difficile is negative, stool cx negative Patient denies of any recent antibiotic use CT abdomen pelvis reviewed: No evidence of sepsis, normal white count, normal LFTs, 2 loose bowel movements last night and bed was changed twice Surgery saw him, no evidence of acute appendicitis given CT finding DC on PO Cipro, Flagyl Type 2 diabetes: Insulin-dependent We will hold patient's home dose of NPH, and metformin Insulin sliding scale, basal Lantus Hyperlipidemia: Continue statin Hypertension: Blood pressure stable, Hold diuretics, chlorthalidone given ongoing GI loss, concern for dehydration Hyponatremia: Due to dehydration, GI loss, patient is also on diuretics chlorthalidone for hypertension Chlorthalidone kept on hold IV fluids with normal saline Repeat BMP in a.m. CODE STATUS: Full code Disposition: Discharged home today Family physician follow-up with Dr. Vuong at [facility] Total Time Total Time Spent Total Time Spent (In Minutes): 45 mins Total Time Includes: Examination of the Patient, Discharge Planning, Medication Reconciliation and Communication With Other Providers Discharge Plan Discharge Items Patient Disposition: Home - Self-Care Reason For Visit: ABDOMINAL PAIN, DIARRHEA Discharge Diagnosis: Infectious Diarrhea Colitis: Type 2 diabetes: Hyperlipidemia: Hypertension: Hyponatremia: Condition on Discharge: Good Activity: Resume your previous activity Lifting Comment: As tolerated Bathing: No limitations Sexual Activity: When tolerated Exercise/Sports: Gradually increase as tolerated Driving/Machine Use: No limitations Weightbearing: Full weightbearing Non-emergency contact: Primary Care Provider Call non-emergency contact if: you have any medication questions Follow-up/Referrals: Avila Hernandez MD [Primary Care Provider] - Diet: Carb Consistent or DM2 Addtl Attending Provider Instructions: Avoid Dairy Pending Studies at Discharge: No Stand-Alone Forms: My [employer], Smoking Cessation Medications and DC Order Prescriptions: New Cholestyramine Light 4 gram Powder In Packet 8 g PO BID@1000,2200 PRN (Reason: diarrhea) Qty: 30 RF: 0 ciprofloxacin HCl 500 mg tablet 500 mg PO BID Qty: 10 RF: 0 metronidazole [Flagyl] 500 mg tablet 500 mg PO BID 5 Days Qty: 10 RF: 0 loperamide [Imodium A-D] 2 mg capsule 2 mg PO Q6H PRN (Reason: loose stool) Qty: 60 RF: 0 Continued tamsulosin [Flomax] 0.4 mg capsule 0.4 mg PO HS RF: 0 atorvastatin [Lipitor] 10 mg Tablet 10 mg PO HS RF: 0 fexofenadine [Ingrid Allergy] 180 mg Tablet 180 mg PO QAM RF: 0 chlorthalidone 50 mg Tablet 25 mg PO QAM RF: 0 gabapentin 300 mg Capsule 300 mg PO QAM RF: 0 magnesium 250 mg Tablet 250 mg PO BID RF: 0 potassium chloride 20 mEq Tablet Extended Release 20 meq PO BID RF: 0 aspirin 81 mg Tablet,Delayed Release (Dr/Ec) 81 mg PO QAM RF: 0 gabapentin 300 mg capsule 600 mg PO HS RF: 0 Changed acetaminophen [Tylenol Arthritis Pain] 650 mg Tablet Extended Release 1,000 mg PO HS Qty: 0 RF: 0 No Action Novolin 70/30 U-100 Insulin 100 unit/mL (70-30) suspension 62 unit SUBCUT HS RF: 0 metformin 500 mg tablet extended release 24 hr 500 mg PO BID RF: 0 Ocuvite Adult 50 Plus 250-5-1 mg Capsule 1 cap PO QAM RF: 0 Novolin 70/30 U-100 Insulin 100 unit/mL (70-30) suspension 47 unit subcut QAM RF: 0 Discharge Orders: Discharge Order (Routine); Ordered 04/02/20 Ordered By: Jimi Galeano/Other Patient Handouts: Diabetes Manage A1C Test Admission Data Admit Date/Time: 03/31/20 14:57 Attending Provider: Jimi Scott Admit Provider: Gabriella Sheth Primary Care Provider: Avila Hernandez Other Providers: Yordy Harris ; Gabriella Sheth
[2020-04-02] MEDS: FEXOFENADINE HCL 180 MG TAB PO SCH (08:57)
[2020-04-02] MEDS: MAGNESIUM OXIDE 400 MG TAB PO SCH (08:57)
[2020-04-02] MEDS: CEROVITE ADV FORMULA TAB PO SCH (08:57)
[2020-04-02] MEDS: ASPIRIN 81 MG ECTAB PO SCH (08:57)
[2020-04-02] MEDS: GABAPENTIN 300 MG CAP PO SCH (08:57)
[2020-04-02] MEDS: POTASSIUM CHLORIDE 20 MEQ TABCR PO SCH (08:58)
[2020-04-02] MEDS: INSULIN GLARGINE SOLOSTAR 100 UNITS/ML 3 ML PEN SC SCH (08:59)
[2020-04-02] MEDS: INSULIN ASPART 100 UNITS/ML 3 ML PEN SC SCH (09:00)
--- NOTE | 2020-04-02 10:29 | Surgery Progress Note ---
Date of Service April 02, 2020 Assessment & Plan (1) Colitis: ok from my standpoint for d/c on antibiotics and [facility] can f/u with me in 1-2 weeks Subjective pt feeling better stools firming. wants to go home Physical Exam Physical Exam: alert. nad abd: soft. less tender. less distended. Results & Data Vital Signs (Past 12 Hours) Vital Signs Temp Pulse Resp BP Pulse Ox 04/02/20 07:40 36.4 C L 48 L 20 117/71 98 04/01/20 23:13 36.4 C L 58 L 16 109/60 97 PG Care Time/CCT Total # of Minutes Spent Total Time Spent with Patient: Total time spent is greater than 50% in coordination of care (as documented) at patient's floor/unit and/or counseling patient: Coding Level of Care Code 05213 Subseq Hosp Care Lvl 2 Diagnoses Colitis K52.9
[2020-04-02] MEDS: CHOLESTYRAMINE LIGHT 4 GM PKT PO SCH (11:14)
== END 2020-04-02 12:37 | disposition home or self-care (01) | DRG 392 ==
LOC: ED 10:55 → SUATTDRO 14:57 → 3N 14:57